=== PATIENT | female | born 1995 | race Caucasian/White ===

== ENCOUNTER 2024-02-12 21:04 | Emergency (ER) | payer MEDICAID ==
[~2024-02-12] VITALS: Ht 175.3 cm; Wt 73.2 kg
[2024-02-12 21:59] LABS: BASOPHILS # (AUTO) 0.1 X10'3 (0-0.2); BASOPHILS % (AUTO) 0.5 % (0-1); EOSINOPHILS % (AUTO) 0 % (0-6); HEMOGLOBIN 14.3 g/dl (12.0-16.0); LYMPHOCYTES # (AUTO) 1.8 X10'3 (1.1-4.8); LYMPHOCYTES % (AUTO) 8.5 % (21-51); MEAN CORPUSCULAR HEMOGLOBIN 31.7 PG (27.0-31.0); MEAN CORPUSCULAR HGB CONC 34.1 g/dL (33.0-36.5); MONOCYTES # (AUTO) 1.1 X10'3 (0-0.9); NEUTROPHILS # (AUTO) 18.6 X10'3 (1.8-7.7); PLATELET COUNT 265 X10'3 (140-440); RED BLOOD COUNT 4.51 X10'6 (4.20-5.60); RED CELL DISTRIBUTION WIDTH 13.5 % (11.5-14.5); WHITE BLOOD COUNT 21.6 X10'3 (4.5-11.0)
[2024-02-12 22:10] LABS: ALANINE AMINOTRANSFERASE 14 U/L (12-78); ALBUMIN 3.2 G/DL (3.4-5.0); ALBUMIN/GLOBULIN RATIO 0.7 (1.1-1.5); ALKALINE PHOSPHATASE 74 IU/L (46-116); ANION GAP 13 (8-16); ASPARTATE AMINO TRANSFERASE 12 U/L (10-37); BILIRUBIN,TOTAL 0.5 MG/DL (0.1-1.0); BLOOD UREA NITROGEN 6 MG/DL (7-18); BUN/CREATININE RATIO 5.9 (10.0-20.0); CALCIUM 8.9 MG/DL (8.5-10.1); CHLORIDE 98 MMOL/L (99-107); CREATININE 1.01 MG/DL (0.40-0.90); GLUCOSE 153 MG/DL (70-104); LIPASE 18 U/L (16-77); SODIUM 135 MMOL/L (135-145); TOTAL PROTEIN 7.8 G/DL (6.4-8.2); eCRCL 87 ML/MIN; eGFR 65 ML/MIN
[2024-02-12] MEDS: potassium Cl 20 mEq SR tablet PO STA (23:17)
[2024-02-12] MEDS: azithromycin 250mg tablet PO ONE (23:19)
[2024-02-12] MEDS: acetaminophen 325mg tablet PO STA (23:19)
[2024-02-12] MEDS: ondansetron/PF 4mg/2ml inj IV ONE (23:20)
[2024-02-12] MEDS: morphine 4 MG/ML inj SYRINge IV ONE (23:20)
[2024-02-12] MEDS: normal saline 1000ML IV soln IV ONE (23:21)
[2024-02-13 00:53] LABS: BILIRUBIN,URINE NEGATIVE (Neg); CLARITY,URINE CLEAR (Clear); COLOR,URINE STRAW (Yellow); GLUCOSE, URINE NEGATIVE (Neg); KETONES,URINE NEGATIVE (Neg); LEUKOCYTE ESTERASE ,URINE NEGATIVE (Neg); NITRITES, URINE NEGATIVE (Neg); OCCULT BLOOD,URINE NEGATIVE (Neg); PH,URINE 6.5 (4.8-8.0); PROTEIN,URINE NEGATIVE (Neg); UROBILINOGEN,URINE 0.2 E.U/dL (0.2-1.0)
[2024-02-13 01:03] LABS: UA COLLECTION TYPE URINAL
[2024-02-13] MEDS ORDERED: [UNRECOGNIZED DRUG - CODE] PO (02:02)
[2024-02-13] MEDS ORDERED: NAPR-56 PO (02:02)
[2024-02-13] MEDS ORDERED: DOXY-457 PO (02:02)
[2024-02-13 02:44] VITALS: BP 127/79; PULSE 102; RESP 16; TEMP 99.9; O2SAT 97
[2024-02-15 08:58] LABS: CHLAMYDIA TRACHOMATIS, NAA Negative (Negative)
== END 2024-02-13 02:38 | disposition home or self-care (01) ==
LOC: ER 21:05
DX: R50.9 Fever, unspecified (principal); F64.0 Transsexualism
CPT/HCPCS: 36415; 74176; 76870; 80053; 81003; 83605; 83690; 84145; 85025; 87040; 87491; 87591; 93976; 96374; 96375; 99285; J2270; J2405; J7030

== ENCOUNTER 2024-09-28 12:08 | Outpatient (CLI) | payer MEDICAID ==
[2024-09-28] MEDS ORDERED: GADOTERATE MEGLUMINE 7.5 MMOL/15 ML VIAL IV ONE (21:06)
== END 2024-09-28 23:59 | disposition home or self-care (01) ==
LOC: MRI 12:08
PROVIDERS: ATTEND Family Medicine
DX: R56.9 Unspecified convulsions (principal)
CPT/HCPCS: 70553; 95816; A9575

== ENCOUNTER 2025-01-09 12:03 | Outpatient (CLI) | payer MEDICAID ==
--- NOTE | 2025-01-09 13:11 | RADIOLOGY REPORT ---
INDICATION: pain COMPARISON: None TECHNIQUE: 6 views of the lumbar spine were obtained. FINDINGS: The lumbar vertebral alignment is normal. The intervertebral disc spaces are well-maintained. No significant facet arthropathy is noted. No acute fracture, vertebral compression deformity or aggressive osseous lesions. The paravertebral soft tissues are grossly unremarkable. IMPRESSION: No acute fracture.
== END 2025-01-09 23:59 | disposition home or self-care (01) ==
LOC: RAD 12:03
DX: M54.59 Other low back pain (principal)
CPT/HCPCS: 72110